=== PATIENT | male | born 2000 | race Two or more races ===

== ENCOUNTER 2020-02-01 12:39 | Emergency (ER) | payer SELFPAY ==
[~2020-02-01] VITALS: Ht 167.6 cm; Wt 52.6 kg
[2020-02-01 14:10] LABS: Basophils # (auto) 0.1 10 ^3/uL (0-0.2); Basophils % (auto) 0.7 % (0.0-2.0); Eosinophils # (auto) 0.1 10 ^3/uL (0-0.8); Eosinophils % (auto) 1.4 % (0.0-7.0); Hematocrit 40.2 % (41.0-53.0); Hemoglobin 13.2 g/dL (13.5-17.5); Lymphocytes # (auto) 1.4 10 ^3/uL (0.4-5.4); Lymphocytes % (auto) 17.2 % (10.0-50.0); Mean Corpuscular Hemoglobin 27.4 pg (28.0-32.0); Mean Corpuscular Hgb Conc. 32.8 g/dL (32.0-36.0); Mean Corpuscular Volume 83.6 fL (80.0-100.0); Monocytes # (auto) 0.5 10 ^3/uL (0-1.3); Monocytes % (auto) 5.9 % (0.0-12.0); Neutrophils # (auto) 6.2 10 ^3/uL (1.6-8.6); Neutrophils % (auto) 74.8 % (37.0-80.0); Platelet Count (auto) 370 10^3/uL (140-450); Red Blood Cells 4.81 10^6/uL (4.5-5.90); White Blood Cell 8.3 10^3/uL (4.4-10.8)
[2020-02-01 14:31] LABS: Calcium 8.9 mg/dL (8.5-10.1); Potassium 3.8 mmol/L (3.5-5.1)
[2020-02-01 14:32] LABS: INR 1.12 (0.9-1.15); Partial Thromboplastin Time 33.6 sec (23.64-32.05)
[2020-02-01 14:33] LABS: BUN/Creatinine Ratio 7.5
[2020-02-01 22:35] VITALS: BP 98/71
== END 2020-02-01 22:43 | disposition left against medical advice (07) ==
LOC: ER 12:39
DX: M79.89 Other specified soft tissue disorders (principal); R79.1 Abnormal coagulation profile; Z53.29 Procedure and treatment not carried out because of patient's decision for other reasons
CPT/HCPCS: 36415; 80048; 85025; 85379; 85610; 85730; 93971

== ENCOUNTER → 2020-02-28 | Emergency (ER) | payer SELFPAY ==
[~2020-02-28] VITALS: Ht 167.6 cm; Wt 49.9 kg
[~2020-02-28] MED LIST: ENOXAPARIN SOD 60 MG/0.6 ML SYRINGE SC ONE; FLUMAZENIL 0.1 MG/ML INJ 10ML MDV IV ONE; WARFARIN SODIUM 5 MG TAB PO ONE
[2020-02-28 07:40] VITALS: BP 120/78
[2020-02-28 09:29] LABS: Basophils # (auto) 0 10 ^3/uL (0-0.2); Eosinophils # (auto) 0.1 10 ^3/uL (0-0.8); Eosinophils % (auto) 0.7 % (0.0-7.0); Hemoglobin 12.4 g/dL (13.5-17.5); Monocytes # (auto) 0.5 10 ^3/uL (0-1.3); Nucleated Red Blood Cells % 0.1 %
[2020-02-28 09:30] LABS: Basophils % (auto) 0.5 % (0.0-2.0); Hematocrit 37.6 % (41.0-53.0); Lymphocytes % (auto) 11.5 % (10.0-50.0); Mean Corpuscular Hemoglobin 27.1 pg (28.0-32.0); Mean Corpuscular Hgb Conc. 33.1 g/dL (32.0-36.0); Monocytes % (auto) 5.7 % (0.0-12.0); Neutrophils # (auto) 7.2 10 ^3/uL (1.6-8.6); Neutrophils % (auto) 81.6 % (37.0-80.0); Platelet Count (auto) 346 10^3/uL (140-450); Red Blood Cells 4.59 10^6/uL (4.5-5.90); Red Cell Distribution Width 15.5 % (11.8-14.3); White Blood Cell 8.8 10^3/uL (4.4-10.8)
[2020-02-28 09:39] LABS: Albumin 3.4 g/dL (3.4-5.0); Calcium 8.9 mg/dL (8.5-10.1); Potassium 3.9 mmol/L (3.5-5.1)
[2020-02-28 09:43] LABS: BUN/Creatinine Ratio 6.3; Bilirubin, Total 0.6 mg/dL (0.2-1.0)
[2020-02-28 10:02] LABS: INR 1.09 (0.9-1.15); Partial Thromboplastin Time 35.3 sec (23.64-32.05)
== END | disposition home or self-care (01) ==
LOC: ER 07:30
DX: I82.4Z1 Acute embolism and thrombosis of unspecified deep veins of right distal lower extremity (principal)
CPT/HCPCS: 36415; 71275; 80053; 85025; 85610; 85730; 93971; 96372; 99285; J1650

== ENCOUNTER 2020-02-29 07:31 | Emergency (ER) | payer SELFPAY ==
[~2020-02-29] VITALS: Ht 167.6 cm; Wt 49.9 kg
[2020-02-29 07:51] VITALS: BP 89/52
== END 2020-02-29 09:11 | disposition left against medical advice (07) ==
LOC: ER 07:31
DX: I82.4Z1 Acute embolism and thrombosis of unspecified deep veins of right distal lower extremity (principal)

== ENCOUNTER 2020-04-19 19:10 | Inpatient (IN) | payer MEDICAID ==
[~2020-04-19] VITALS: Ht 167.6 cm; Wt 56.4 kg
[2020-04-19 20:42] LABS: Eosinophils # (auto) 0 10 ^3/uL (0-0.8); Hemoglobin 12.9 g/dL (13.5-17.5); Lymphocytes # (auto) 1.2 10 ^3/uL (0.4-5.4); Nucleated Red Blood Cells % 0.1 %
[2020-04-19 20:43] LABS: Basophils # (auto) 0 10 ^3/uL (0-0.2); Basophils % (auto) 0.3 % (0.0-2.0); Eosinophils % (auto) 0.2 % (0.0-7.0); Hematocrit 39.5 % (41.0-53.0); Mean Corpuscular Hemoglobin 26.1 pg (28.0-32.0); Mean Corpuscular Hgb Conc. 32.7 g/dL (32.0-36.0); Mean Corpuscular Volume 79.9 fL (80.0-100.0); Monocytes # (auto) 0.7 10 ^3/uL (0-1.3); Monocytes % (auto) 6.8 % (0.0-12.0); Neutrophils # (auto) 8.1 10 ^3/uL (1.6-8.6); Neutrophils % (auto) 80.7 % (37.0-80.0); Platelet Count (auto) 279 10^3/uL (140-450); Red Blood Cells 4.94 10^6/uL (4.5-5.90); Red Cell Distribution Width 18.9 % (11.8-14.3); White Blood Cell 10.1 10^3/uL (4.4-10.8)
[2020-04-19] MEDS ORDERED: HEPARIN SODIUM (PORCINE) 5000 UNITS/ML 1ML VIAL IV ONE (20:45)
[2020-04-19 21:01] LABS: Albumin 4.1 g/dL (3.4-5.0); BUN/Creatinine Ratio 9.9; Calcium 8.9 mg/dL (8.5-10.1); INR 1.08 (0.9-1.15); Potassium 3.9 mmol/L (3.5-5.1)
[2020-04-19 21:04] LABS: Bilirubin, Total 0.8 mg/dL (0.2-1.0); Total Protein 9.2 g/dL (6.4-8.2)
[2020-04-19] MEDS ORDERED: ACETAMINOPHEN 325 MG TAB PO PRN (21:30)
[2020-04-19] MEDS ORDERED: HYDROcodone-ACET 5/325MG TAB PO PRN (21:30)
[2020-04-19] MEDS ORDERED: ONDANSETRON HCL 4 MG/2 ML VIAL IV PRN (21:30)
[2020-04-19] MEDS ORDERED: TEMAZEPAM 15 MG CAP PO PRN (22:00)
[2020-04-19] MEDS: FAMOTIDINE 20 MG TAB PO SCH (22:45)
[2020-04-20 00:18] VITALS: BP 115/61
[2020-04-20 05:26] VITALS: BP 107/57
[2020-04-20 06:18] LABS: Basophils # (auto) 0 10 ^3/uL (0-0.2); Eosinophils # (auto) 0.1 10 ^3/uL (0-0.8); Lymphocytes # (auto) 1.2 10 ^3/uL (0.4-5.4); Monocytes # (auto) 0.6 10 ^3/uL (0-1.3); Neutrophils # (auto) 4.2 10 ^3/uL (1.6-8.6); White Blood Cell 6.2 10^3/uL (4.4-10.8)
[2020-04-20 06:21] LABS: Basophils % (auto) 0.5 % (0.0-2.0); Eosinophils % (auto) 2.3 % (0.0-7.0); Hematocrit 36.9 % (41.0-53.0); Lymphocytes % (auto) 19.9 % (10.0-50.0); Mean Corpuscular Hemoglobin 26.3 pg (28.0-32.0); Mean Corpuscular Hgb Conc. 32.7 g/dL (32.0-36.0); Mean Corpuscular Volume 80.4 fL (80.0-100.0); Monocytes % (auto) 10.2 % (0.0-12.0); Neutrophils % (auto) 67.1 % (37.0-80.0); Platelet Count (auto) 249 10^3/uL (140-450); Red Blood Cells 4.59 10^6/uL (4.5-5.90); Red Cell Distribution Width 18.9 % (11.8-14.3)
[2020-04-20 06:35] LABS: INR 1.09 (0.9-1.15); Partial Thromboplastin Time 33.3 sec (23.0-31.2)
[2020-04-20 06:37] LABS: Calcium 8.4 mg/dL (8.5-10.1); Potassium 3.6 mmol/L (3.5-5.1)
[2020-04-20 06:39] LABS: BUN/Creatinine Ratio 15.4
[2020-04-20 09:00] VITALS: BP 107/61
[2020-04-20] MEDS: FAMOTIDINE 20 MG TAB PO SCH (09:19)
[2020-04-20] MEDS ORDERED: ENOXAPARIN SOD 60 MG/0.6 ML SYRINGE SC SCH (10:00)
[2020-04-20 13:00] VITALS: BP 103/59
== END 2020-04-20 14:00 | disposition left against medical advice (07) | DRG 197 ==
LOC: ER 19:10 → OVERFLOW 19:11 → WEST WING 23:53
PROVIDERS: ADMIT Nurse Practitioner; ATTEND Internal Medicine
DX: I82.412 Acute embolism and thrombosis of left femoral vein (principal); Z86.718 Personal history of other venous thrombosis and embolism; Z91.19 Patient's noncompliance with other medical treatment and regimen; Z53.29 Procedure and treatment not carried out because of patient's decision for other reasons
CPT/HCPCS: 36415; 80048; 80053; 85025; 85610; 85730; 93971; G0378